=== PATIENT | female | born 1990 | race Caucasian/White ===

== ENCOUNTER 2017-06-15 13:44 | Emergency (ER) ==
[2017-06-15 13:59] VITALS: BP 129/87; TEMP 97.5; BMI 43.2
[2017-06-15] MEDS ORDERED: NORCO 10-325 PO STA (14:07)
[2017-06-15 14:30] LABS: BASOPHILS % (AUTO) 0.3 % (0.0-3.0); EOSINOPHILS # (AUTO) 0.2 K/ul (0.0-0.7); EOSINOPHILS % (AUTO) 2.2 % (0.0-7.0); HEMATOCRIT 41.2 % (37.0-47.0); HEMOGLOBIN 14.4 g/dl (12.0-16.0); IMMATURE GRANULOCYTE % (AUTO) 0.3 % (0.0-5.0); LYMPHOCYTES # (AUTO) 2.5 K/uL (0.60-3.4); LYMPHOCYTES % (AUTO) 36.3 (10.0-50.0); MEAN CORPUSCULAR HEMOGLOBIN 31.4 pg (27.0-31.0); MONOCYTES # (AUTO) 0.4 K/uL (0.4-2.0); MONOCYTES % (AUTO) 5.5 (0-10); NEUTROPHILS # (AUTO) 3.8 K/ul (2.0-6.9); NEUTROPHILS % (AUTO) 55.4; PLATELET COUNT 169 10^3/uL (140-440); RED BLOOD COUNT 4.58 10^6/ul (4.20-5.40); WHITE BLOOD COUNT 6.91 K/ul (4.6-10.2)
[2017-06-15 14:34] LABS: ADD URINE MICROSCOPIC NO; BILIRUBIN,URINE Negative (NEGATIVE); KETONES,URINE Negative (NEGATIVE); LEUKOCYTE ESTERASE ,URINE Negative (NEGATIVE); NITRITE,URINE Negative (NEGATIVE); PROTEIN,URINE Negative (NEGATIVE); URINE PREGNANCY INTERNAL QC INTERNAL QC VALID; URINE, BLOOD Negative (NEGATIVE)
--- NOTE | 2017-06-15 15:09 | US ---
EXAM: Transvaginal pelvic ultrasound HISTORY: Pelvic pain 2 months COMPARISON: None TECHNIQUE: Transvaginal pelvic ultrasound was performed FINDINGS: Uterus measures 4.4 x 4.9 x 8.9 cm. Several heterogeneous regions in the uterus measuring up to 2.0 cm and 1.6 cm may represent nonspecific, likely nonspecific myometrial heterogeneity versu s less likely fibroids. Endometrium appears normal measures 0.8 cm. Right ovary measures 1.7 x 2.1 x 2.6 cm and is unremarkable. Normal arterial and venous Doppler flow in right ovary. Left ovary no t visualized. No free fluid identified in the cul-de-sac. IMPRESSION: 1. Several small areas of myometrial heterogeneity likely nonspecific myometrial heterogeneity and ma y represent normal variation versus less likely fibroids. Endometrium normal in thickness. 2. Normal appearance right ovary. Nonvisualization left ovary.
--- NOTE | 2017-06-15 15:12 | CT ---
EXAM: CT Abdomen without contrast. CT Pelvis without contrast. HISTORY: Generalized abdominal pain. COMPARISON: None available. TECHNIQUE: Multiple axial images of the abdomen and pelvis were obtained without intravenous contras t. Images were reformatted in the coronal plane. FINDINGS: Please note that evaluation of the abdominal and pelvic structures is limited due to lack of intravenous contrast. Lung bases are clear. No acute osseous abnormality identified. The liver, gallbladder, pancreas, spleen, adrenal glands, and kidneys demonstrate normal contour. No calcified renal stones or hydronephrosis identified. The bowel is normal in course and caliber without evidence for obstruction or inflammatory process. The appendix is normal. Small fat-containing umbilical hernia is present. Uterus demonstrates daphne l contour. Urinary bladder is unremarkable. Varices seen in the anterior subcutaneous tissues of nuris th thighs, which are uncertain significance. Consider previous/chronic lower extremity thrombus. IMPRESSION: No acute abnormality in the abdomen or pelvis.
[2017-06-15 15:17] LABS: ALBUMIN 3.2 g/dL (3.4-5.0); ALBUMIN/GLOBULIN RATIO 0.97; ANION GAP 9.9; BILIRUBIN,TOTAL 0.42 mg/dL (0.00-1.20); CALCIUM 8.8 mg/dL (8.2-10.2); CREATININE 0.68 mg/dL (0.60-1.30); POTASSIUM 3.9 mmol/L (3.5-5.10); TOTAL PROTEIN 6.5 g/dL (6.4-8.2)
[2017-06-15 15:18] LABS: BUN/CREATININE RATIO 17.64
--- NOTE | 2017-06-15 15:33 | ED.PDOC ---
General ED Provider: Dr. BENITA PATEL Chief Complaint: Abdominal Pain Stated Complaint: abdominal Time Seen by Physician: 13:50 Information Source: Patient Exam Limitations: No limitations Primary Care Provider: KARSON KRISHNA Nursing and Triage Documentation Reviewed and Agree: Yes GI Complaint Exam - Abdominal Pain Complaint/Exam Onset: Gradual Duration: 1 day Symptoms Are: Still present Timing: Constant Initial Severity: Mild Current Severity: Mild Location of Pain: Discrete Radiates To: Reports: Chest Character: Reports: Aching Aggravating: Reports: None Alleviating: Reports: None Associated Signs and Symptoms: Reports: Dysuria. Denies: Diaphoresis, Fever, Cough, Chest pain, Dizziness, Back pain, Constipation, Blood in stool, Urinary frequency, Decreased urine output, Decreased appetite, Vaginal bleeding, Vaginal discharge, Nausea, Vomiting, Diarrhea, Sore throat, Decreased activity AAA Risk Factors: Reports: None Cardiac Risk Factors: Reports: None Ectopic Risk Factors: Reports: None Ovarian Torsion Risk Factors: Reports: None Related Surgical History: Reports: None Patient Rh Status: Unknown Abdominal Findings: Present: None Differential Diagnoses: Appendicitis, Bowel Obstruction, Constipation Review of Systems - Review Of Systems Constitutional: Reports: No symptoms Eyes: Reports: No symptoms Ears, Nose, Mouth, Throat: Reports: No symptoms Respiratory: Reports: No symptoms Cardiac: Reports: No symptoms GI: Reports: Abdominal pain : Reports: No symptoms Musculoskeletal: Reports: No symptoms Skin: Reports: No symptoms Neurological: Reports: No symptoms Endocrine: Reports: No symptoms Hematologic/Lymphatic: Reports: No symptoms All Other Systems: Reviewed and Negative Past Medical History - Past Medical History Previously Healthy: Yes Endocrine: Reports: None Cardiovascular: Reports: None Respiratory: Reports: None Hematological: Reports: None Gastrointestinal: Reports: None Genitourinary: Reports: None Neuro/Psych: Reports: None Musculoskeletal: Reports: None Cancer: Reports: None Last Menstrual Period: 2 months - Surgical History General Surgical History: Reports: None - Family History Family History: Reports: None - Social History Smoking Status: Current every day smoker, Heavy tobacco smoker Hx Substance Use: No Alcohol Screening: Occasionally Physical Exam - Physical Exam Appearance: Well-appearing, No pain distress, Well-nourished Eyes: ADA, EOMI, Conjunctiva clear ENT: Ears normal, Nose normal, Oropharynx normal Respiratory: Airway patent, Breath sounds clear, Breath sounds equal, Respirations nonlabored Cardiovascular: RRR, Pulses normal, No rub, No murmur GI/: Soft, Nontender, No masses, Bowel sounds normal, No Organomegaly Musculoskeletal: Normal strength, ROM intact, No edema, No calf tenderness Skin: Warm, Dry, Normal color Neurological: Sensation intact, Motor intact, Reflexes intact, Cranial nerves intact, Alert, Oriented Psychiatric: Affect appropriate, Mood appropriate Interpretation - Radiology Interpretation Radiology Interpretation By: Radiologist Radiology Results: Positive (fibroid discussed with pt) Critical Care Note - Critical Care Note Total Time (mins): 0 Course - Course Hematology/Chemistry: 06/15/17 14:20 Orders, Labs, Meds: Lab Review 06/15/17 06/15/17 06/15/17 14:20 14:20 14:20 WBC 6.91 RBC 4.58 Hgb 14.4 Hct 41.2 MCV 90.0 MCH 31.4 H MCHC 35.0 RDW Coeff of Luz 12.3 Plt Count 169 Immature Gran % (Auto) 0.3 Neut % (Auto) 55.4 Lymph % (Auto) 36.3 [place] % (Auto) 5.5 Eos % (Auto) 2.2 Baso % (Auto) 0.3 Immature Gran # (Auto) 0.0 Neut # 3.8 Lymph # 2.5 [place] # 0.4 Eos # 0.2 Baso # 0.0 Urine Color Yellow Urine Clarity Cloudy Urine pH 6.0 Ur Specific [place] 1.015 Urine Protein Negative Urine Glucose (UA) Negative Urine Ketones Negative Urine Blood Negative Urine Nitrite Negative Urine Bilirubin Negative Urine Urobilinogen 0.2 Ur Leukocyte Esterase Negative Urine Test Negative Orders Category Date Time Status AMYLASE Stat LAB 06/15/17 14:20 Received CBC W/ AUTO DIFF Stat LAB 06/15/17 14:20 Completed COMPREHENSIVE METABOLIC PANEL Stat LAB 06/15/17 14:20 Received LIPASE Stat LAB 06/15/17 14:20 Received URINALYSIS C & S IF INDICATED Stat LAB 06/15/17 14:20 Completed URINE Stat LAB 06/15/17 14:20 Completed Hydrocodone Bit/Acetaminophen [[place] 10-325] MEDS 06/15/17 14:07 Discontinued 1 tab PO ONCE STA CT ABDOMEN/PELVIS WO CONTRAST Stat RADS 06/15/17 14:07 Completed U/S PELVIS BAUTISTA VAGINAL/NON OB Stat RADS 06/15/17 14:07 Completed Medications Discontinued Medications Generic Name Dose Route Start Last Admin Trade Name Eric PRN Reason Stop Dose Admin Acetaminophen/Hydrocodone Bitart 1 tab 06/15/17 14:07 06/15/17 14:56 [place] 10-325 PO 06/15/17 14:08 1 tab ONCE STA Administration Vital Signs: Temp Pulse Resp BP Pulse Ox 06/15/17 13:46 97.5 F L 89 20 129/87 97 Departure - Departure Time of Disposition: 15:36 Disposition: HOME SELF-CARE Discharge Problem: Abdominal pain Instructions: Abdominal Pain (ED) Condition: Good Pt referred to PMD for follow-up: Yes Additional Instructions: Please call your Family Physician as soon as possible to schedule a follow-up appointment. Allergies/Adverse Reactions: Allergies No Known Allergies Allergy (Unverified 06/15/17 13:54) Home Medications: Ambulatory Orders 1 [No Reported Medications] 06/15/17
== END 2017-06-15 15:47 | disposition home or self-care (01) ==
LOC: ED 13:44
DX: R10.9 Unspecified abdominal pain (principal); R30.0 Dysuria; F17.210 Nicotine dependence, cigarettes, uncomplicated
CPT/HCPCS: 36415; 80053; 81001; 81025; 82150; 83690; 85025; 99283